=== PATIENT | male | born 1980 | race Two or more races ===

== ENCOUNTER 2017-07-17 23:31 | Emergency (ER) | payer SELFPAY ==
[~2017-07-17] VITALS: Ht 175.3 cm; Wt 74.8 kg
[2017-07-17 23:40] VITALS: BP 125/71
[2017-07-17] MEDS ORDERED: CLARITIN10 MG ORAL (23:44)
[2017-07-17] MEDS ORDERED: AFRIN NASAL SPR30 ML NASAL (23:44)
[2017-07-17] MEDS ORDERED: ZYRTEC10 MG ORAL (23:44)
[2017-07-18] MEDS ORDERED: HYDROCORTISON-A10 ML OT (00:15)
--- NOTE | 2017-07-18 00:15 | Emergency Room Report ---
History of Present Illness General Chief Complaint: Earache Source: Patient Present Illness HPI This is a 36-year-old male with a history of recurrent otitis externa on his right ear. He's been treating it with irrigation and sometime antibiotic drops. He's been having problem for a week now. He started some antibiotic drops yesterday and woke up this morning unable to hear. Pain with movement. No fever chills but no nausea no vomiting. Nothing made it better. Nothing made it worse. He is worried that he may have perforated his ear. Allergies: Coded Allergies: No Known Allergies (Unverified , 07/17/17) Review of Systems Eye: Denies: eye pain, blurred vision ENT: Reports: ear pain, ear discharge; Denies: nose congestion, throat swelling Respiratory: Denies: cough, shortness of breath Cardiovascular: Denies: chest pain, palpitations Gastrointestinal: Denies: abdominal pain, diarrhea, nausea, vomiting Musculoskeletal: Denies: back pain, joint pain Skin: Denies: rash Neurological: Denies: headache, numbness Endocrine: Denies: increased thirst, increased urine Hematologic/Lymphatic: Denies: easy bruising All Other Systems: negative except mentioned in HPI Physical Exam Vital Signs Date Time Temp Pulse Resp B/P (MAP) Pulse Ox O2 Delivery O2 Flow Rate FiO2 07/17/17 23:35 97.9 67 16 125/71 96 Room Air 97.9 vitals normal Sp02 EP Interpretation: reviewed, normal General Appearance: well appearing, no apparent distress, alert Head: normocephalic, atraumatic Eyes: bilateral eye PERRL, bilateral eye EOMI ENT: hearing grossly normal, normal pharynx, other - Right ear canal is obstructed with cerumen. After disimpaction, there is no perforation. There is erythema at the canal with mild edema. There is some adherent to the TM and wall of the canal is concerning for possible fungal/candidal. Neck: full range of motion, supple, no meningismus Respiratory: chest non-tender, lungs clear, normal breath sounds Cardiovascular #1: regular rate, rhythm, no murmur Gastrointestinal: normal bowel sounds, non tender, no mass, no organomegaly, no bruit, non-distended Musculoskeletal: back normal, gait/station normal, normal range of motion Psychiatric: mood/affect normal Skin: warm/dry Procedures Additional Procedure Procedure Narrative Procedure: Cerumen disimpaction Indication: Cerumen impaction Description: I irrigated the ear canal with normal saline using an 18-gauge angiocatheter. Cerumen disimpacted easily. On recheck no perforation. Patient thought her procedure without a problem. No complication Medical Decision Making Diagnostic Impression: Primary Impression: Impacted cerumen of right ear Additional Impression: Otitis externa of right ear Qualified Codes: H60.501 - Unspecified acute noninfective otitis externa, right ear ER Course Patient with cerumen impaction and otitis externa. He's already started on levofloxacin. We'll discharge home with ENT follow-up. We'll mastoiditis. Last Vital Signs Date Time Temp Pulse Resp B/P (MAP) Pulse Ox O2 Delivery O2 Flow Rate FiO2 07/17/17 23:35 97.9 67 16 125/71 96 Room Air 97.9 Status: improved Disposition: HOME, SELF-CARE Condition: Stable Scripts Acetic Acid/Hydrocortisone (HYDROCORTISON-ACETIC ACID SOLN) 10 Ml Drops 4 DROP OT QID, #10 ML Prov: CLAUDIO CARROLL M.D. 07/18/17 Patient Instructions: Otitis Externa, [id number] Additional Instructions: Continue with your antibiotic drops. Follow-up with your Dr. in 7 days if not better. Return of worse. CLAUDIO CARROLL M.D. Jul 18, 2017 00:15
[2017-07-18 00:20] VITALS: BP 125/71
== END 2017-07-18 00:20 | disposition home or self-care (01) ==
LOC: EMR 23:50
DX: H60.501 Unspecified acute noninfective otitis externa, right ear (principal); H61.21 Impacted cerumen, right ear
CPT/HCPCS: 99283